=== PATIENT | female | born 1985 | race Caucasian/White ===

== ENCOUNTER 2023-01-06 13:38 | Emergency (ER) | payer OTHER, SELFPAY ==
[2023-01-06 13:51] VITALS: BP 118/70; PULSE 100; RESP 18; TEMP 36.4; O2SAT 98; BMI 27.3
--- NOTE | 2023-01-06 14:30 | ED.GENADULT ---
HPI - General Adult General Chief complaint: Laceration/Wound Stated complaint: Sliced open L pointer finger Time Seen by Provider: 01/06/23 13:58 Source: patient Mode of arrival: ambulatory Limitations: no limitations History of Present Illness HPI narrative: Patient is a 37-year-old woman who cut her left index finger with a kitchen knife. Continues to notes some oozing blood, no loss of function, numbness, weakness. Tetanus up-to-date. Related Data Home Medications Medication Instructions Recorded Confirmed albuterol sulfate 2.5 mg/3 mL 2.5 mg inhalation Q6H PRN 06/08/22 01/06/23 (0.083 %) solution for nebulization albuterol sulfate 90 mcg/actuation 1 inh inhalation Q4H PRN 06/08/22 01/06/23 aerosol inhaler (Ventolin HFA) propranolol 10 mg tablet 10 mg PO DAILY PRN 06/08/22 01/06/23 Previous Rx's Medication Instructions Recorded benzonatate 100 mg capsule 100 mg PO BID-TID PRN cough #14 06/08/22 caps fluticasone furoate 100 1 inh inhalation Q24H #30 ea 06/08/22 mcg/actuation blister powder for inhalation Allergies Allergy/AdvReac Type Severity Reaction Status Date / Time amoxicillin Allergy Mild Rash Verified 06/08/22 13:37 PFSH PFSH Social History Smoking Status: Never smoker Second hand tobacco smoke exposure: No How often do you have a drink containing alcohol: monthly or less How many standard drinks containing alcohol do you have on a typical day: 1 or 2 How often do you have six or more drinks on one occasion: Never AUDIT-C Alcohol total score: 1 Non-prescribed substance use: denies use Exam Narrative: Exam Narrative: Vital signs reviewed In general, alert, well-appearing woman. Examination of her left hand shows a 1/2 cm laceration on the radial aspect of the index finger at the level of the PIP. She has full extension and flexion of the PIP and D IP joints. Distal CMS is normal. Remainder the hand is atraumatic. Const: Vital Signs, click to edit/add: Vital Signs - 24 hr 01/06/23 13:51 Temperature 97.6 F Pulse Rate [Pulse Oximeter] 100 Respiratory Rate 18 Blood Pressure [Ri ght Upper Arm] 118/70 Pulse Oximetry 98 Oxygen Delivery Me thod Room Air Course Course Hospital Course: Procedure note: The wound was anesthetized using lidocaine with epinephrine and explored, no evidence of injury to deeper structures. Foreign body. Wound was repaired using 5 0 nylon, a total of 4 simple interrupted superficial sutures were placed. She tolerated this well without immediate complication. Dressing is applied by the marine services technician. Her is an EMT, she says he will likely take out her stitches which should happen in about 10 days. Return for signs of infection. Vital Signs Vital signs: Initial Vital Signs Temperature 97.6 F 01/06/23 13:51 Temperature Source Temporal Artery Scan 01/06/23 13:51 Pulse Rate 100 01/06/23 13:51 Respiratory Rate 18 01/06/23 13:51 Blood Pressure 118/70 01/06/23 13:51 Blood Pressure Mean 86 01/06/23 13:51 Blood Pressure Position Sitting 01/06/23 13:51 Pulse Oximetry 98 01/06/23 13:51 Oxygen Delivery Method Room Air 01/06/23 13:51 Vital Signs Temperature 97.6 F 01/06/23 13:51 Pulse Rate 100 01/06/23 13:51 Respiratory Rate 18 01/06/23 13:51 Blood Pressure 118/70 01/06/23 13:51 Pulse Oximetry 98 01/06/23 13:51 Oxygen Delivery Method Room Air 01/06/23 13:51 Temperature 97.6 F 01/06/23 13:51 Pulse Rate 100 01/06/23 13:51 Respiratory Rate 18 01/06/23 13:51 Blood Pressure 118/70 01/06/23 13:51 Pulse Oximetry 98 01/06/23 13:51 Oxygen Delivery Method Room Air 01/06/23 13:51 Discharge Plan Discharge Clinical Impression: Laceration of finger of left hand Patient Disposition: Home, Self-Care Condition: Improved Instructions: Finger Laceration (ED) Additional Instructions: Routine wound care. Suture removal in about 10 days. Return for signs of infection. Prescriptions: No Action albuterol sulfate [Ventolin HFA] 90 mcg/actuation HFA aerosol inhaler 1 inh inhalation Q4H PRN Patient Comments: INHALE 2 PUFFS BY MOUTH EVERY 4 HOURS BEFORE EXERCISE NEEDED albuterol sulfate 2.5 mg /3 mL (0.083 %) solution for nebulization 2.5 mg inhalation Q6H PRN Patient Comments: USE 1 VIAL VIA NEBULIZER EVERY 6 HOURS NEEDED propranolol 10 mg tablet 10 mg PO DAILY PRN Patient Comments: TAKE 1 TABLET BY MOUTH 30-60 MINUTES BEFORE SOCIAL OR ANXIETY PROVOKING EVENT benzonatate 100 mg capsule 100 mg PO BID-TID PRN (Reason: cough) Qty: 14 0RF fluticasone furoate 100 mcg/actuation blister with device 1 inh inhalation Q24H Qty: 30 0RF Rx Instructions: For 7 days, take 1 inhalation two times per day (12 hours apart). Then for the next 7 days use one time per day in the morning. Follow Up/Referrals: Sydnie Bills MD [Primary Care Provider] - Stand Alone Forms: [id number] Info Instructions
== END 2023-01-06 14:29 | disposition home or self-care (01) ==
LOC: ED 14:21
PROVIDERS: Emergency Provider Emergency Medicine; PCP Family Medicine
DX: S61.211A Laceration without foreign body of left index finger without damage to nail, initial encounter (principal); W26.0XXA Contact with knife, initial encounter
CPT/HCPCS: 12001; 99283

== ENCOUNTER 2023-06-18 07:00 | Day surgery (SDC) | payer OTHER, SELFPAY ==
[2023-06-18 07:22] VITALS: BMI 27.8
[2023-06-18 07:25] VITALS: BP 110/62; PULSE 82; RESP 16; TEMP 36.6; O2SAT 97
[2023-06-18 07:27] LABS: Ur HCG Qualitative* Negative (Negative)
[2023-06-18] MEDS: LACTATED RINGERS 1000 ML 1,000 ML 100 ML IV (07:35)
[2023-06-18] MEDS: SODIUM CHLORIDE 0.9 % (FLUSH) 10 ML SYRINGE IVF (07:39)
--- NOTE | 2023-06-18 08:35 | P.GYNPRC_ITS ---
Procedure Note Date of procedure: 06/18/23 Pre-op diagnosis: Menorrhagia Procedure: 1. Hysteroscopy 2. D&C 3. Johanna endometrial ablation Anesthesia: MAC and local (Paracervical block) Complications: None Surgeon: Talita Mattson MD Estimated blood loss (mL): 5 Urine Output (mL): 241 Pathology: specimen obtained, sent to pathology Condition: stable Disposition: same day Findings: Anteverted uterus, normal sized. Normal endometrial cavity. Procedure Description: After obtaining informed consent, the patient was taken to the operating room w here she received monitored anesthesia care. She was prepared and draped in the normal sterile fashion, in the dorsal lithotomy position. An open-sided bivalve speculum was introduced into the vagina and the cervix visualized. The anterior lip of the cervix was grasped with a single-tooth tenaculum for traction. A paracervical block was then administered using a total of 20 mL of a 50/50 mixture of 0.25% Marcaine and 1% lidocaine plain. The uterus was gently sounded, but the sound could not advnce past the internal cervical os. Tiny cervical dilators were used to gently dilate the cervix. The sound was again inserted. Sound length was 9 cm. The cervix length was determined to be 4 cm using Hegar dilators, yielding a uterine cavity length of 5 cm. The cervix was gently dilated to a #6 Hegar dilator. A hysteroscope was then advanced under direct visualization through the cervix into the uterine cavity. Sterile normal saline was used as distending medium. The uterine cavity was carefully inspected with the findings noted above. The hysteroscope was then removed. The endometrial lining was then sharply curetted. The Johanna device was then set to a cavity length of 5 cm, inserted through the cervical os into the uterine cavity to the level of the fundus, and deployed. The device was sealed against the cervix. The safety checks were then passed x2 and the 2-minute treatment cycle initiated. Following completion of the treatment cycle, the Johanna device was removed. The hysteroscope was advanced again into the uterine cavity and the uterine cavity inspected. A good ablation was noted from the internal os to fundus and to the cornua bilaterally. Pictures were taken for documentation purposes. The hysteroscope was removed. The tenaculum was removed. There was little bleeding from the tenaculum site, which was controlled with direct pressure sponge stick and electrocautery. All instruments were then removed. The patient tolerated the procedure well. Sponge, lap, needle, and instrument counts reported as correct x2. The patient was taken to the recovery room awake in a stable condition. Toradol 30 mg IV was administered by the [employer]. A postoperative debrief was done which confirmed the procedures performed and the pathology specimen to be sent in formalin.
[2023-06-18] MEDS: BUPIVACAINE 0.25% 30 ML INJECTION (08:54)
[2023-06-18] MEDS: LIDOCAINE 1% MDV 20 ML INJECTION (08:54)
[2023-06-18 09:25] VITALS: BP 112/71; PULSE 79; RESP 16; TEMP 36.3; O2SAT 98
[2023-06-18 09:40] VITALS: BP 114/78; PULSE 60; RESP 16; O2SAT 98
[2023-06-18 09:55] VITALS: BP 119/79; PULSE 59; RESP 16; O2SAT 97
[2023-06-18] MEDS: HYDROCODONE/ACETAMIN 7.5-325 TABLET 1 TAB PO (10:16)
[2023-06-18 10:27] VITALS: BP 118/70; PULSE 53; RESP 16; TEMP 36.4; O2SAT 97
== END 2023-06-18 10:45 | disposition home or self-care (01) ==
PROVIDERS: PCP Family Medicine; Visit Provider Obstetrics & Gynecology
PROC: 0UF98ZZ Fragmentation in Uterus, Via Natural or Artificial Opening Endoscopic (ICD-10-PCS; CPT 58563; principal; 2023-06-18 08:15)
DX: N92.0 Excessive and frequent menstruation with regular cycle (principal)
CPT/HCPCS: 58563; 81025; 88305; A9270; J0665; J1100; J1885; J2250; J2405; J2704; J3010; J7120

== ENCOUNTER 2023-06-26 07:05 | Emergency (ER) | payer OTHER, SELFPAY ==
[2023-06-26 07:20] VITALS: BP 128/87; PULSE 77; RESP 18; TEMP 36.8; O2SAT 97; BMI 26.6
--- NOTE | 2023-06-26 07:37 | ED_ITS ---
HPI - General Adult General Date Seen: 06/26/23 Chief complaint: Abdominal Pain Stated complaint: Abdominal pain radiating to back- post op Time Seen by Provider: 06/26/23 07:07 Source: patient, RN notes reviewed and old records reviewed Mode of arrival: ambulatory Limitations: no limitations History of Present Illness HPI narrative: Patient is a 38-year-old woman who presents for evaluation of intermittent upper and mid abdominal pain for the past 5-6 days. She did undergo uterine ablation on the , this pain started on the . It is associated with significant nausea. When present, pain runs across the upper or sometimes mid abdomen through to her back on both sides. Yesterday she was feeling okay in terms of the pain until the evening when she went to bed and then she woke up this morning at 5:00 a.m. due to significant pain. She has not had any vomiting. She initially thought she was constipated from the pain medications she was taking after the ablation so she stopped the pain medications and started taking laxatives. She is now having normal bowel movements but continues to have abdominal pain. She has not run a fever. Denies urinary symptoms. History of no other abdominal surgeries. Related Data Home Medications Medication Instructions Recorded Confirmed albuterol sulfate 2.5 mg/3 mL 2.5 mg inhalation Q6H PRN 06/08/22 06/26/23 (0.083 %) solution for nebulization albuterol sulfate 90 mcg/actuation 1 inh inhalation Q4H PRN 06/08/22 06/26/23 aerosol inhaler (Ventolin HFA) propranolol 10 mg tablet 10 mg PO DAILY PRN 06/08/22 06/26/23 ondansetron HCl 4 mg tablet mg PRN 06/14/23 Allergies Allergy/AdvReac Type Severity Reaction Status Date / Time amoxicillin Allergy Mild Rash Verified 05/03/23 09:39 Review of Systems Status of ROS: Reports: 10 or more systems reviewed and unremarkable except as noted in History and below [facility] Medical History Migraine headache with aura ?G43.109 - Migraine with aura, not intractable, without status migrainosus (ICD-10) Surgical History History of right breast biopsy ?Z98.890 - Other specified postprocedural states (ICD-10) History of bilateral salpingectomy (04/13/21) ?Z90.79 - Acquired absence of other genital organ(s) (ICD-10) History of wisdom tooth extraction (2000) ?K08.409 - Partial loss of teeth, unspecified cause, unspecified class (ICD- 10) History of strabismus surgery ?Z98.890 - Other specified postprocedural states (ICD-10) History of foot surgery ?Z98.890 - Other specified postprocedural states (ICD-10) History of 2 sections ?Z98.891 - History of uterine scar from previous surgery (ICD-10) Family History Father High blood pressure Prostate cancer Mother Leiomyosarcoma Osteopenia Lissette's thyroiditis Lupus Maternal Grandfather Prostate cancer Maternal Grandmother Breast cancer Uterine cancer Paternal Grandfather Diabetes Lung cancer Heart disease Social History Are you following a special diet: Yes (gluten free) Highest level of school completed/degree received: Bachelor's degree Smoking Status: Never smoker Do you use any of these nicotine containing products: None Second hand tobacco smoke exposure: No How often do you have a drink containing alcohol: monthly or less How many standard drinks containing alcohol do you have on a typical day: 1 or 2 How often do you have six or more drinks on one occasion: Never AUDIT-C Alcohol total score: 1 Non-prescribed substance use: denies use Are you now , , , , never or living with a partner: Social isolation score (0-1 are the most socially isolated patients): 1 Gender Identity: female Are you currently sexually active: Yes service: No Exam Narrative: Exam Narrative: Vital signs reviewed In general, an alert nontoxic woman. Head: Normocephalic, atraumatic. Eyes: Sclera clear. ENT: Mucous membranes moist. Neck: Supple. Heart: Regular rate and rhythm without murmur. Lungs: Clear. Breath sounds equal. Abdomen: Soft and essentially nontender to palpation. Negative Whiteside sign. No significant uterine tenderness. No CVA tenderness. Skin: Warm dry well perfused. Neurologic: She is alert, conversant, cooperative. Affect: Normal. Const: Vital Signs, click to edit/add: Vital Signs - 24 hr 06/26/23 07:20 06/26/23 09:54 Temperature 98.3 F Pulse Rate [Pulse Oximeter] 77 71 Respiratory Rate 18 18 Blood Pressure [Ri ght Upper Arm] 128/87 113/66 Pulse Oximetry 97 97 Oxygen Delivery Me thod Room Air Room Air Course Course ED Course: Diagnostic considerations include a postoperative complications such as infection, gastritis, peptic ulcer disease, cholecystitis, gastroenteritis. She had an IV placed, was given a L of normal saline, Zofran and Toradol. Did not feel that the Zofran was helpful, actually says she has Zofran at home and has not found it helpful. She did improve with Reglan. Labs were entirely normal, white count is 10, hemoglobin 14, metabolic panel and LFTs both normal, lactate 1.8, CRP 0.6. Lipase was 93. UA was negative, test was negative. I spoke with Dr. Haines, who did not feel that symptoms are likely a consequence of her recent ablation/D&C. I did do a right upper quadrant ultrasound to evaluate for possible biliary colic, this is negative. Overall symptoms are not strongly suggestive of biliary colic, I do not think I would moved to HIDA scan at this time. I would recommend a little bit of time to see if this improves, perhaps she is having intestinal colic related to recent constipation, recommended a trial of omeprazole for gastritis, and primary care follow-up next week for recheck. Return at any time for acute worsening. Vital Signs Vital signs: Initial Vital Signs Temperature 98.3 F 06/26/23 07:20 Temperature Source Temporal Artery Scan 06/26/23 07:20 Pulse Rate 77 06/26/23 07:20 Pulse Rhythm Regular 06/26/23 07:20 Respiratory Rate 18 06/26/23 07:20 Blood Pressure 128/87 06/26/23 07:20 Blood Pressure Mean 100 06/26/23 07:20 Blood Pressure Position Supine 06/26/23 07:20 Pulse Oximetry 97 06/26/23 07:20 Oxygen Delivery Method Room Air 06/26/23 07:20 Vital Signs Temperature 98.3 F 06/26/23 07:20 Pulse Rate 77 06/26/23 07:20 Respiratory Rate 18 06/26/23 07:20 Blood Pressure 128/87 06/26/23 07:20 Pulse Oximetry 97 06/26/23 07:20 Oxygen Delivery Method Room Air 06/26/23 07:20 Temperature 98.3 F 06/26/23 07:20 Pulse Rate 71 06/26/23 09:54 Respiratory Rate 18 06/26/23 09:54 Blood Pressure 113/66 06/26/23 09:54 Pulse Oximetry 97 06/26/23 09:54 Oxygen Delivery Method Room Air 06/26/23 09:54 Medications Administered Medications: Discontinued Medications Generic Name Dose Route Start Last Admin Trade Name Freq PRN Reason Stop Dose Admin Sodium Chloride 1,000 mls @ 1,000 mls/hr 06/26/23 07:45 06/26/23 09:53 0.9 % Sodium Chloride 1000 Ml IV 06/26/23 08:44 Infused .Q1H ANNE Infusion Metoclopramide HCl 10 mg/ 102 mls @ 306 mls/hr 06/26/23 10:25 06/26/23 11:03 Sodium Chloride IVPB 06/26/23 10:26 Infused ONCE ONE Infusion Ketorolac Tromethamine 15 mg 06/26/23 07:40 06/26/23 08:42 Ketorolac 15 Mg/Ml Inj IVP 06/26/23 07:41 15 mg ONCE ONE Administration Ondansetron HCl 4 mg 06/26/23 07:40 06/26/23 08:45 Ondansetron 2 Mg/Ml Inj IVP 06/26/23 07:41 4 mg ONCE ONE Administration Medical Decision Making Lab Data Labs: Lab Results 06/26/23 06/26/23 Range/Units 07:55 08:02 WBC 10.07 (4.50-11.00) K/uL RBC 4.57 (4.00-5.20) m/uL Hgb 14.0 (12.0-16.0) gm/dL Hct 41.6 (33.0-51.0) % MCV 91 (80-100) fL MCH 31 (26-34) pg MCHC 34 (32-36) gm/dL RDW Coeff of Eugenia 12.4 (11.5-15.5) % Plt Count 231 (140-440) K/uL Neut % (Auto) 75.8 H (42.0-72.0) % Lymph % (Auto) 16.1 L (20-44) % [place] % (Auto) 6.1 (0.0-11.0) % Eos % (Auto) 1.5 (0.0-7.0) % Baso % (Auto) 0.3 (0.0-3.0) % Neut # (Auto) 7.60 H (1.7-7.0) K/uL Lymph # (Auto) 1.60 (0.90-2.90) K/uL [place] # (Auto) 0.60 (0.00-0.90) K/UL Eos # (Auto) 0.15 (0.00-0.50) K/uL Baso # (Auto) 0.03 (0.00-0.30) K/uL Abs Immat Gran (auto) 0.02 (0.00-0.30) K/uL Imm/Tot Granulo (auto) 0.2 % Sodium 138 (135-149) mmol/L Potassium 4.0 (3.6-5.1) mmol/L Chloride 105 (96-114) mmol/L Carbon Dioxide 20 (20-32) mmol/L Anion Gap 13 (7-15) mEq/L BUN 17 (5-24) mg/dL Creatinine 0.7 (0.5-1.5) mg/dL Estimated Creat Clear 113.88 Estimated GFR 113 ml/min Glucose 113 (60-115) mg/dL Lactate 1.8 (0.5-1.9) mmol/L Calcium 8.6 (8.4-10.6) mg/dL Total Bilirubin 0.3 (0.1-1.5) mg/dL Direct Bilirubin 0.0 (0.0-0.5) mg/dL AST 20 (12-35) U/L ALT 20 (4-35) U/L Alkaline Phosphatase 63 (40-150) U/L C-Reactive Protein 0.6 (0.5-1.0) mg/dL Total Protein 7.4 (6.0-8.3) g/dL Albumin 4.6 (3.3-5.0) g/dL Lipase 93 (23-300) U/L Urine Color Yellow (Yellow) Urine Appearance Clear (Clear) Urine pH 6.0 (5.0-8.5) Ur Specific [place] 1.025 (1.000-1.030) Urine Protein Negative (Negative) Urine Glucose (UA) Negative (Negative) Urine Ketones Negative (Negative) Urine Blood Trace-intact A (Negative) Urine Nitrite Negative (Negative) Urine Bilirubin Negative (Negative) Urine Urobilinogen 0.2 (0.2-1.0) Ur Leukocyte Esterase Negative (Negative) Urine HCG, Qual Negative (Negative) Discharge Plan Discharge Clinical Impression: Abdominal pain Patient Disposition: Home, Self-Care Condition: Stable Instructions: Abdominal Pain (ED) Additional Instructions: Workup today is unrevealing. Labs and ultrasound are all normal. I did talk with the consumer loan specialist on-call who does not feel that your symptoms are likely related to your procedures on the . For now I would recommend use of ibuprofen plus or minus Tylenol. I prescribed Zofran if needed for nausea. Cause of your symptoms is not clear at this time although it may be related to intestinal colic or gastritis. I would recommend a trial of omeprazole 40 mg daily for couple of weeks. Please follow-up with your primary clinic next week for recheck. Return any time for worsening. Prescriptions: No Action albuterol sulfate [Ventolin HFA] 90 mcg/actuation HFA aerosol inhaler 1 inh inhalation Q4H PRN Patient Comments: INHALE 2 PUFFS BY MOUTH EVERY 4 HOURS BEFORE EXERCISE NEEDED albuterol sulfate 2.5 mg /3 mL (0.083 %) solution for nebulization 2.5 mg inhalation Q6H PRN Patient Comments: USE 1 VIAL VIA NEBULIZER EVERY 6 HOURS NEEDED propranolol 10 mg tablet 10 mg PO DAILY PRN Patient Comments: TAKE 1 TABLET BY MOUTH 30-60 MINUTES BEFORE SOCIAL OR ANXIETY PROVOKING EVENT ondansetron HCl 4 mg tablet PRN Follow Up/Referrals: Sydnie Bills MD [Primary Care Provider] - Stand Alone Forms: [employer] Info Instructions
[2023-06-26 08:12] LABS: Lactate* 1.8 mmol/L (0.5-1.9)
[2023-06-26 08:13] LABS: Basophils Absolute Auto 0.03 K/uL (0.00-0.30); Basophils Percent Auto 0.3 % (0.0-3.0); Eosinophils Absolute Auto 0.15 K/uL (0.00-0.50); Eosinophils Percent Auto 1.5 % (0.0-7.0); Hematocrit 41.6 % (33.0-51.0); Immature Granulocytes Abs Auto 0.02 K/uL (0.00-0.30); Immature Granulocytes Pct Auto 0.2 %; Lymphocytes Percent Auto 16.1 % (20-44); Mean Corpuscular HGB Conc 34 gm/dL (32-36); Mean Corpuscular Hemoglobin 31 pg (26-34); Mean Corpuscular Volume 91 fL (80-100); Monocytes Percent Auto 6.1 % (0.0-11.0); Neutrophils Percent Auto 75.8 % (42.0-72.0); Platelet Count* 231 K/uL (140-440); RDW Coefficient of Variation % 12.4 % (11.5-15.5); Red Blood Count 4.57 m/uL (4.00-5.20); White Blood Count* 10.07 K/uL (4.50-11.00)
[2023-06-26 08:16] LABS: Ur HCG Qualitative* Negative (Negative)
[2023-06-26 08:25] LABS: Slide Review Reflex No
[2023-06-26 08:35] LABS: Chloride* 105 mmol/L (96-114); Sodium* 138 mmol/L (135-149)
[2023-06-26 08:36] LABS: Albumin* 4.6 g/dL (3.3-5.0)
[2023-06-26 08:38] LABS: Creatinine* 0.7 mg/dL (0.5-1.5); Est. Creatinine Clearance* 113.88; Estimated Glomerular Filt Rate 113 ml/min
[2023-06-26 08:39] LABS: Anion Gap 13 mEq/L (7-15); Aspartate Amino Transferase* 20 U/L (12-35); Bilirubin Total* 0.3 mg/dL (0.1-1.5); Blood Urea Nitrogen* 17 mg/dL (5-24); Calcium* 8.6 mg/dL (8.4-10.6); Carbon Dioxide* 20 mmol/L (20-32); Glucose* 113 mg/dL (60-115); Total Protein* 7.4 g/dL (6.0-8.3)
[2023-06-26 08:40] LABS: Alanine Aminotransferase* 20 U/L (4-35); Alkaline Phosphatase* 63 U/L (40-150); Lipase* 93 U/L (23-300)
[2023-06-26] MEDS: 0.9 % SODIUM CHLORIDE 1000 ml 1,000 ML IV (08:41)
[2023-06-26 08:42] LABS: C Reactive Protein* 0.6 mg/dL (0.5-1.0)
[2023-06-26] MEDS: KETOROLAC 15 MG/ML inj IVP (08:42)
[2023-06-26 08:45] LABS: Appearance Urine Clear (Clear); Bilirubin Urine Negative (Negative); Blood Urine Trace-intact (Negative); Color Urine Yellow (Yellow); Glucose Urine Negative (Negative); Ketones Urine Negative (Negative); Leukocyte Esterase Urine Negative (Negative); Nitrite Urine Negative (Negative); Protein Urine Negative (Negative); Specific Gravity Urine 1.025 (1.000-1.030); Urobilinogen Urine 0.2 (0.2-1.0)
[2023-06-26] MEDS: ONDANSETRON 2 MG/ML inj 4 MG IVP (08:45)
--- NOTE | 2023-06-26 09:13 | CRLHL7_ITS ---
For Patients: As a result of the Century Cures Act, medical imaging exams and procedure reports are released immediately into your electronic medical record. You may view this report before your referring provider. If you have questions, please contact your health care provider. INDICATION: Int upper abdominal pain for 5 days TECHNIQUE: Ultrasound abdomen limited. Sonographic images of the right upper quadrant were obtained using farris-scale and color Doppler images. COMPARISON: None. FINDINGS: Liver: Normal in size and echotexture. No suspicious masses. No intrahepatic biliary dilatation. Gallbladder: No stones or sludge. Normal wall thickness. No pericholecystic fluid. Common bile duct: 5 in mm. Pancreas: Unremarkable. Right kidney: Normal in size. Normal echotexture and cortex. No suspicious masses, stones, or hydronephrosis. Vasculature: Proximal abdominal aorta unremarkable. IMPRESSION: Unremarkable right upper quadrant ultrasound. Dictated by Sky Gordon MD @ 06/26/2023 10:17:26 AM (Electronically Signed)
[2023-06-26 09:54] VITALS: BP 113/66; PULSE 71; RESP 18; O2SAT 97
[2023-06-26] MEDS: METOCLOPRAMIDE HCL 10 MG in 0.9 % SODIUM CHLORIDE 100 ml 100 ML 306 MG IVPB (10:34)
--- NOTE | 2023-06-26 11:04 | ED.NURSE ---
had Reglan iv and does feel better. dc to home with .
[2023-06-27 01:07] LABS: RBC Urine 0-2 (0-2); Squamous Epithelial Cell Urine Few (None-Few); WBC Urine 0-2 (0-5)
== END 2023-06-26 11:08 | disposition home or self-care (01) ==
PROVIDERS: Emergency Provider Emergency Medicine; PCP Family Medicine
DX: R10.9 Unspecified abdominal pain (principal)
CPT/HCPCS: 36415; 76705; 80048; 80076; 81001; 81025; 83605; 83690; 85025; 86140; 96365; 96375; 99284; J1885; J2405; J2765; J7030

== ENCOUNTER 2023-10-21 09:00 | Outpatient (RCR) | payer OTHER, SELFPAY | END 2024-02-18 23:59 | disposition home or self-care (01) | PROVIDERS: PCP Family Medicine; Visit Provider Physical Medicine & Rehabilitation | DX: M54.16 Radiculopathy, lumbar region (principal); M43.06 Spondylolysis, lumbar region; Z51.89 Encounter for other specified aftercare | CPT/HCPCS: 97110; 97140; 97162; 97530 ==